=== PATIENT | male | born 1975 | race Caucasian/White ===

== ENCOUNTER 2024-09-28 12:56 | Emergency (ER) | payer OTHER, SELFPAY ==
[2024-09-28 12:58] VITALS: BP 143/82
[2024-09-28 14:07] VITALS: BP 132/87
[2024-09-28 14:11] VITALS: BMI 32.0
--- NOTE | 2024-09-28 14:15 | ED.GENMED ---
History of Present Illness
General
Chief Complaint: Abdominal Pain
Source: patient
Exam Limitations: none
Time Seen by Provider: 09/28/24 13:06
Nursing documentation reviewed up to this point in time: agreed with
History of Present Illness
History of Present Illness:
49-year-old male with history of cholecystectomy 2011, fatty liver presents for 2-1/2 days of intermittent mid upper abdominal pain. The pain was worse last night and he could not sleep. He states it feels like the pain he had when he had his
gallbladder out. He denies nausea or vomiting or diarrhea. He did take activated charcoal yesterday and Tums which helped. Yesterday he felt fine during the day but in the morning the pain came back and in the middle of the night it was even
worse and he had trouble sleeping and he had a sudden urge to defecate with the pain but could not move his bowels. The pains last 30 seconds to 1 minute and then come every 10 to 15 minutes. He went to urgent care this morning and actually had a
large bowel movement and the pain went away. He states he went home and at 11:30 AM the pain returned 12/14 and is now 'just a discomfort' 05/16. He denies fever or chills. He denies recent travel or any sick contacts.
Past History
Past History
ED Past Medical History: None
ED Past Surgical History: Cholecystectomy
Social History
Tobacco: Non-smoker
Alcohol: None
Personal:
Living: with family
Employment: Employed
Review of Systems
Review of Systems
Allergies reviewed?: Yes
All Other Systems: ROS reviewed and negative except as documented in HPI and ROS
Constitutional: Denies fever
Respiratory: Denies trouble breathing
Cardiac: Denies chest pain
ABD/GI: Reports abdominal pain; Denies nausea, vomiting, diarrhea, bloody stools or black stools
: Denies dysuria, frequency or difficulty voiding
Skin: Reports no symptoms
Neurological: Reports no symptoms
Phy Exam
Physical Exam
Physical Exam:
GENERAL: No acute distress. A&Ox3.
CONSTITUTIONAL: Afebrile.
EYES: clear, conjunctivae normal
ENMT: moist mucus membranes,
RESPIRATORY: Regular respirations, nonlabored, lungs clear.
CARDIOVASCULAR: Regular rate and rhythm, no murmurs, no rubs.
GI: Soft, tender mid epigastric area, normal BS
MUSCULOSKELETAL: Moves with ease. Well perfused.
SKIN: Warm, dry, pink
PSYCH: Normal mood and affect. Well kept, interactive and appropriate
NEUROLOGIC: Awake, alert and oriented. No focal neurological deficits
Course
Orders/Labs/Results
Orders:
Orders
09/28/24 14:15
CT Abd/Pel (IV only)-[facility] only Urgent
Comment:
Reason For Exam: mid upper abdominal pain
0.9% Sodium Chloride 500 ml [Nss] 500 ml IV BOLUS
09/28/24 14:19
Complete Blood Count/With Diff Urgent
Comprehensive Metabolic Panel Urgent
Lipase Urgent
09/28/24 17:29
Pantoprazole [Protonix IV] 80 mg IV NOW STA
Abnormal Lab Results
09/28/24
14:19
MPV 12.5 H fL
(7.4-10.4)
Carbon Dioxide 32 H mmol/L
(22-30)
Glucose 100 H mg/dl
(70-99)
Total Bilirubin 1.9 H mg/dl
(0.2-1.3)
ALT 139 H U/L
(0-50)
09/28/24 14:19
09/28/24 14:19
Vital Signs
Initial and Last Documented VS:
Initial Vital Signs
Temp Pulse Resp BP Pulse Ox
98.5 F 76 16 143/82 100
09/28/24 12:58 09/28/24 12:58 09/28/24 12:58 09/28/24 12:58 09/28/24 12:58
Last Documented Vital Signs
Temp Pulse Resp BP Pulse Ox
98.5 F 72 18 125/82 95
09/28/24 12:58 09/28/24 17:41 09/28/24 17:41 09/28/24 17:41 09/28/24 17:41
MDM/Problems Addressed
Differential Diagnosis Includes:
Gastritis, choledocholithiasis, diverticulitis, colitis
MDM/Problems Addressed:
49-year-old male with history of cholecystectomy 2011, fatty liver presents for 2-1/2 days of intermittent mid upper abdominal pain. The pain was worse last night and he could not sleep. He states it feels like the pain he had when he had his
gallbladder out. He denies nausea or vomiting or diarrhea. He did take activated charcoal yesterday and Tums which helped. Yesterday he felt fine during the day but in the morning the pain came back and in the middle of the night it was even
worse and he had trouble sleeping and he had a sudden urge to defecate with the pain but could not move his bowels. The pains last 30 seconds to 1 minute and then come every 10 to 15 minutes. He went to urgent care this morning and actually had a
large bowel movement and the pain went away. He states he went home and at 11:30 AM the pain returned 12/14 and is now 'just a discomfort' 05/16. He denies fever or chills. He denies recent travel or any sick contacts.
Afebrile, NAD
5:00 PM: CBC normal
CMP with mildly elevated total bilirubin and ALT otherwise normal
Lipase normal
CT abdomen pelvis radiology report read: Status postcholecystectomy with no evidence for biliary or ductal dilation
Impression:Status post cholecystectomy with no evidence for biliary ductal dilation.
The appendix appears normal. No evidence for diverticulitis.
No evidence for bowel obstruction or free intraperitoneal air.
Bony degenerative changes as described.
Pt given copy of report.
Plan: Protonix rx sent to his pharmacy and Ward text sent to GI to get pt in sooner rather than later.
*Critical Care Note
Total Time (30-74mins, 75-104mins- exclusive of procedures): Not Applicable
ED Attending Note
-
Portions of this chart may have been created with voice recognition software.� Occasional wrong word or��sound alike� substitutions may have occurred due to the inherent limitations of voice recognition software.
Discharge Plan
Departure
Patient Disposition: Home (Routine Discharge)
Date of Disposition: 09/28/24
Time of Disposition: 17:21
Patient with high blood pressure during this ER visit?: No
Condition: Good
Discharge Problem:
Abdominal pain
Instructions: Acid Reflux and GERD in Adults (DC), Abdominal Pain
Prescriptions:
New
pantoprazole [Protonix] [address] for susp in packet
40 mg PO DAILY Qty: 30 0RF
No Action
multivitamin Tablet
1 tab PO DAILY
Fish Oil Capsule
1,000 mg PO DAILY
Vitamin D (with calcium) 77-400 mg-unit Tablet
1 tab PO DAILY
Referrals:
Stephanie Fischer MD [Active] - Call in 1-3 days for appt
Karla Trujillo CRNP [Family Provider] - As needed
Activity Restrictions/Additional Instructions:
As we discussed, your CAT scan shows nothing worrisome or anything to explain your pain. Your lab work is normal save for mild elevation of AST and bilirubin. Please ask your doctor if these are normal levels for you.
I sent a prescription to your pharmacy for Protonix to use until you see the GI doctor.
Someone from the GI office should call you within the next few days to get you in sooner rather than later
Interventions
Interventions:
*Risk Screen - Suicide Last Done: 09/28/24 14:12
*General Assessment Last Done: 09/28/24 14:12
*Neglect/Abuse Screening Last Done: 09/28/24 14:12
*ED- Fall Risk Assessment Last Done: 09/28/24 14:10
*ED COVID-19 Vaccine History Last Done: 09/28/24 14:10
*Nursing Disposition Last Done: 09/28/24 18:15
WW-Kgndxf-Kiuzrcfjme Assessment Last Done: 09/28/24 14:09
Discharge Date and Time
Discharge Date/Time: 09/28/24 18:15
Print Language: YI
[2024-09-28] MEDS: NSS 500 IV (14:20)
[2024-09-28 14:26] LABS: % Basophils 0.4 % (0-2); % Eosinophils 0.9 % (0-6); % Immature Granulocytes 0.4 % (0-0.5); % Lymphocytes 30.7 % (20.5-51.1); % Monocytes 5.4 % (1.7-9.3); % Neutrophils 62.2 % (42.2-75.2); Absolute Eosinophils 0.1 10^3/uL (0-0.7); Absolute Lymphocytes 3.2 10^3/uL (1.2-3.4); Absolute Monocytes 0.6 10^3/uL (0.1-0.6); Absolute Neutrophils 6.4 10^3/uL (1.4-6.5); Hematocrit 44.6 % (39.0-52.0); Hemoglobin 15.6 g/dL (13.0-18.0); Mean Corpuscular Hgb 29.9 pg (27.0-31.0); Mean Corpuscular Volume 85.4 fL (80.0-94.0); Mean Platelet Volume 12.5 fL (7.4-10.4); Nucleated Red Blood Cells % 0 % (-); Platelet Count 165 10^3/uL (130-400); Red Blood Cell Count 5.22 10^6/uL (4.70-6.10); Red Cell Dist. Width 12.4 % (11.5-14.5); White Blood Cell Count 10.3 10^3/uL (4.8-10.8)
[2024-09-28 14:55] LABS: ALT (SGPT) 139 U/L (0-50); AST (SGOT) 59 U/L (17-59); Albumin 4.5 g/dl (3.5-5.0); Alkaline Phosphatase 108 U/L (38-126); Blood Urea Nitrogen 11 mg/dl (9-20); Calcium 9.9 mg/dl (8.4-10.2); Carbon Dioxide 32 mmol/L (22-30); Chloride 105 mmol/L (98-107); Estimated Creatinine Clearance 119 ml/min; Glucose 100 mg/dl (70-99); Lipase 83 U/L (23-300); Potassium 4.4 mmol/L (3.5-5.1); Sodium 141 mmol/L (135-145); Total Bilirubin 1.9 mg/dl (0.2-1.3); Total Protein 7.4 g/dl (6.3-8.2); eGFR > 60.00
[2024-09-28] MEDS: PROTONIX IV 80 MG IV (17:35)
[2024-09-28 17:41] VITALS: BP 125/82
== END 2024-09-28 18:15 | disposition home or self-care (01) ==
LOC: EMR 12:56
PROVIDERS: Registered Nurse; EMERGENCY PHYSICIAN Emergency Medicine; FAMILY PHYSICIAN Family Medicine
DX: R10.10 Upper abdominal pain, unspecified (principal); Z90.49 Acquired absence of other specified parts of digestive tract
CPT/HCPCS: 99284; 96374; 96361; 74177; 80053; 83690; 85025; Q9967